=== PATIENT | male | born 1945 | race Caucasian/White ===

== ENCOUNTER 2025-01-29 08:56 | Emergency (ER) | payer OTHER, SELFPAY ==
[2025-01-29 08:57] VITALS: BMI 38.7
[2025-01-29 09:24] VITALS: BP 159/84; PULSE 68; RESP 18; TEMP 36.8; O2SAT 96
--- NOTE | 2025-01-29 09:41 | XR_ITS ---
Examination: Duplex scan of the lower extremity, unilateral left complete Date and time of exam: January 29, 2025 1142 hours INDICATIONS: Left leg swelling and pain beginning 4 days ago Technique: Duplex scan of the extremity veins using B-mode/grayscale imaging and Doppler spectral analysis and color flow Attention is directed to internal echogenicity, compression and augmentation involving these veins, color flow assessment, spectral analysis Findings: Major deep venous structures in the extremity demonstrate normal course and caliber. There is no evidence of deep vein thrombosis. Normal color flow and spectral analysis Impression: Negative for DVT..
--- NOTE | 2025-01-29 09:41 | XR_ITS ---
Examination: Foot, left, 3 views Technique: AP, oblique, lateral views foot, 3 views Date and time of exam: January 30, 2020 5:11 AM INDICATIONS: Redness swelling and pain involving the foot beginning 2 days ago FINDINGS: No fracture. No cortical bone destruction No opaque foreign body IMPRESSION: Soft tissue swelling dorsum of the foot No cortical bone destruction
--- NOTE | 2025-01-29 09:42 | PD.EDRME ---
Rapid Medical Screening Exam [facility] Arrival date/time: 01/29/25 08:56 79-year-old male with no known medical history presents to the emergency room with a chief complaint of swelling, tenderness to his left knee and left calf x 3 days. Patient states he also has an injury to his left great toe that occurred after hitting it. I have greeted and performed a focused initial assessment of this patient. A comprehensive ED assessment and evaluation of the patient, analysis of all test results, and completion of the medical decision making process will be conducted by additional ED providers. Chief Complaint: Ankle/Foot Injury Time Seen by Provider: 01/29/25 09:19 Vital signs: Vital Signs Temperature 98.2 F 01/29/25 09:24 Pulse Rate 68 01/29/25 09:24 Respiratory Rate 18 01/29/25 09:24 Blood Pressure 159/84 H 01/29/25 09:24 Pulse Oximetry (%) 96 01/29/25 09:24 Oxygen Delivery Method Room Air 01/29/25 09:24 Vital signs reviewed by provider: Yes
[2025-01-29 10:24] LABS: Basophils # (Auto) 0.1 Thou/mm3 (0.0-0.2); Basophils % (Auto) 1 % (0-2.5); Eosinophils # (Auto) 0.3 Thou/mm3 (0.0-0.5); Eosinophils % (Auto) 3 % (0-10); Hematocrit 45.9 % (41.0-53.0); Hemoglobin 15.6 g/dL (13.5-16.0); Immature Granulocytes % (Auto) 1 % (0-0); Immature Granulocytes Auto 0.05 Thou/mm3 (0.00-0.00); Lymphocytes # (Auto) 1.7 Thou/mm3 (1.0-4.8); Lymphocytes % (Auto) 17 % (10-50); Mean Corpuscular Hemoglobin 29.3 pg (25.0-35.0); Mean Corpuscular Volume 86 fL (80-100); Monocytes # (Auto) 0.7 Thou/mm3 (0.0-0.8); Monocytes % (Auto) 6 % (0-12); Neutrophils # (Auto) 7.4 Thou/mm3 (1.8-7.7); Neutrophils % (Auto) 73 % (37-80); Nucleated Red Blood Cell % 0 /100 WBC (0); Platelet Count 216 Thou/mm3 (140-440); RDW Standard Deviation 41.3 fL (35.1-43.9); Red Blood Count 5.33 Miln/mm3 (4.50-5.90); White Blood Count 10.2 Thou/mm3 (3.8-10.6)
[2025-01-29 10:46] LABS: Alanine Aminotransferase 14 U/L (10-49); Albumin, Serum 4.2 gm/dL (3.4-4.8); Albumin/Globulin Ratio 1.3 (1.2-2.2); Alkaline Phosphatase 96 U/L (46-116); Anion Gap 5 (7-16); Aspartate Amino Transferase 14 U/L (0-34); BUN/Creatinine Ratio 12 Ratio (12-20); Bilirubin,Total 0.8 mg/dL (0.3-1.2); Blood Urea Nitrogen 15 mg/dL (9-23); C-Reactive Protein < 0.5 mg/dL (0.0-0.9); Calcium 9.4 mg/dL (8.3-10.6); Calcium (Corrected) 9.4 mg/dL (8.5-10.1); Carbon Dioxide 27.5 mMol/L (20.0-31.0); Chloride 108 mMol/L (98-107); Creatinine (Component) 1.3 mg/dL (0.6-1.3); Estimated Creatinine Clearance 61.5 mL/min (>60); Globulin 3.3 gm/dL (2.3-3.5); Glucose 113 mg/dL (74-106); Osmolality,Calculated 281 (275-295); Potassium 4.2 mMol/L (3.4-5.1); Sodium 140 mMol/L (136-145); Total Protein 7.5 gm/dL (5.7-8.2); eGFR 56 See Note
[2025-01-29 12:16] LABS: Sed Rate (ESR) 25 mm/hr (0-20)
--- NOTE | 2025-01-29 14:22 | XR_ITS ---
Examination: Knee, left , 3 views Technique: Knee AP, lateral, oblique 3 views Date and time of exam: January 29, 2025 1435 hours INDICATIONS: Left knee swelling and pain beginning 3 days ago FINDINGS: Mild narrowing medial patellofemoral joints Small knee effusion No fracture IMPRESSION: Mild osteoarthritis No fracture Small knee effusion
--- NOTE | 2025-01-29 14:24 | PD.EDADULT ---
ED General RME/HPI General Chief complaint: Ankle/Foot Injury Stated complaint: LEFT KNEE/ANKLE PAIN AND SWELLING Time Seen by Provider: 01/29/25 09:19 Arrival date/time: 01/29/25 08:56 CC: Left knee left calf and left great toe pain HPI patient is more concerned about the knee as it would gave out yesterday. The patient also is noticed that he has been getting subtle swelling in both ankles now in the left persistently while it has been ongoing for a while in the right ankle. Patient denies fever chills chest pain shortness of breath or difficulty breathing no other complaints at this time. RME / HPI RME / HPI narrative: 01/29/25 08:56 79-year-old male with no known medical history presents to the emergency room with a chief complaint of swelling, tenderness to his left knee and left calf x 3 days. Patient states he also has an injury to his left great toe that occurred after hitting it. I have greeted and performed a focused initial assessment of this patient. A comprehensive ED assessment and evaluation of the patient, analysis of all test results, and completion of the medical decision making process will be conducted by additional ED providers. Related Data Home Medications ?Medication ?Instructions ?Recorded ?Confirmed Unobtainable 04/29/20 04/29/20 Allergies Allergy/AdvReac Type Severity Reaction Status Date / Time No Known Allergies Allergy Verified 01/29/25 09:00 Review of Systems Review of Systems Narrative Review of Systems: GEN: No fever, no chills, no weight loss EYES: No discharge, no visual changes, no pain HEENT: No ear pain, no congestion, no sore throat PULM: No shortness of breath, no cough, no congestion CV: No chest pain, no dyspnea on exertion, no palpitations GI: No nausea, no vomiting, no diarrhea, no pain, no constipation : No frequency, no urgency, no dysuria MUSC/SKEL: + joint pain, no back pain SKIN: No rash PSYCH: No hallucinations, no depression HEME/LYMPH: No easy bleeding or bruising tendencies NEURO: No weakness, no headache Past Medical History Social History SMOKING STATUS: Former smoker ED Exam Narrative Physical exam: [General: Somewhat ill kempt. Obese not in any acute distress Head normocephalic HEENT: Within acceptable limits Neck is supple nontender Chest equal chest rise nontender to palpation Respiratory: Clear to auscultation no wheezes crackles or rubs CV: Rate rhythm is regular no murmurs rubs or clicks Abdomen is distended secondary to body habitus soft nontender no masses positive bowel sounds all 4 quadrants Back: No CVA tenderness no spinous process tenderness from cervical spine thoracic and lumbar spine Skin: Lower extremities, no streaking erythema open lesions induration or ulcerations. Otherwise skin is intact no petechiae rash induration ulceration or crepitus Extremities: Left lower extremity. The knee is not warm to touch no edema full range of motion no anterior posterior laxity, no posterior fossa pain with palpation. No fluctuance. No erythema. Range of motion without pops or clicks. Left ankle: Full range of motion nonpitting edema. Left great toe. Mildly edematous not erythematous not warm to touch cap refill at 2 seconds. Moving all other extremities against resistance cap refill less than 2 seconds neurosensory intact Neuro: Awake alert oriented x3 Glascow coma 15 no focal deficits] Course Course Course Narrative: Assessment of the patient shows that he is overweight, the patient has full range of motion however the knee x-ray shows the patient has no Fracture malalignment or dislocation, there is a small knee effusion. Patient was informed of this and states that [facility] if [facility] is a concern whether he potentially needs a knee replacement. Otherwise there is no acute finding. Quality Measures none Orders Category Date Time Status US venous doppler LE LT Stat Exams 01/29/25 09:41 Completed XR foot comp LT min 3V Stat Exams 01/29/25 09:41 Completed XR knee LT 3V Stat Exams 01/29/25 14:22 Taken CBC Stat Lab 01/29/25 10:14 Completed CMP [Comprehensive Metabolic Panel] Stat Lab 01/29/25 10:14 Completed CRP [C-Reactive Protein] Stat Lab 01/29/25 10:14 Completed ESR [Sed Rate (ESR)] Stat Lab 01/29/25 10:14 Completed Vital Signs Vital signs: Vital Signs Temperature 98.2 F 01/29/25 09:24 Pulse Rate 68 01/29/25 09:24 Respiratory Rate 18 01/29/25 09:24 Blood Pressure 159/84 H 01/29/25 09:24 Pulse Oximetry (%) 96 01/29/25 09:24 Oxygen Delivery Method Room Air 01/29/25 09:24 Discharge Plan Plan Patient Disposition: HOME (Self Care) Patient condition on transfer: Stable Prescriptions/Referrals Prescriptions/Med Rec: No Action Unobtainable Referrals: No Primary/Family,Physician [Primary Care Provider] - In 1 week Kenan Haro MD [Physician] - In 1 week Problem List Clinical Impression: Knee pain, Great toe pain, Calf pain Patient/Caregiver Discharge Instructions Education Materials: ED JERRY Wrap, ED Knee Pain of Uncertain Cause, ED Knee Effusion Additional Instructions: Use an Jerry wrap on the knee if there is a worsening of symptoms [facility] or return to the emergency room for reevaluation. Print Language: British Stand Alone Forms: [employer] Award Info., Work/School Release, Patient Portal Info Letter PA/ADDY Supervising Physician PA/ADDY Supervising Physician: Naman Guadalupe ENP MDM Patient Acuity Low Acuity (complete MDM as needed) Clinical Information Provided by: patient Medical Records reviewed [facility] Labs/Rad/Tests considered, not ordered None EKG EKG not done Labs Lab(s) Interpretation(s): CBC is interpreted by me shows no leukocytosis anemia thrombocytopenia ESR 25 CMP shows no acute electrolyte imbalances renal impairment transaminitis or T. bili elevation Doppler study of the left lower extremity is negative for DVT X-ray of the foot is negative for fracture malalignment or dislocation as interpreted by me.
== END 2025-01-29 14:59 | disposition home or self-care (01) ==
PROVIDERS: Nurse Practitioner Family; Emergency Provider Family Medicine
DX: M25.462 Effusion, left knee (principal); M79.675 Pain in left toe(s); M79.662 Pain in left lower leg; M25.472 Effusion, left ankle; M25.471 Effusion, right ankle
CPT/HCPCS: 36415; 73562; 73630; 80053; 85025; 85652; 86140; 93971; 99284